=== PATIENT | male | born 1990 | race African-American/Black ===

== ENCOUNTER 2017-08-08 16:31 | Emergency (ER) | payer OTHER ==
[~2017-08-08] VITALS: Ht 180.3 cm; Wt 78.5 kg
[~2017-08-08 16:31] MED LIST: AMOX500C2 PO; HYDR-34 PO; NAPR-243 PO; SULF-222 PO; TRAZ-28 PO
[2017-08-08] MEDS ORDERED: ONDANSETRON 4 MG (ZOFRAN) ORAL DISSOLVE TAB SL ONE (18:30)
[2017-08-08] MEDS ORDERED: NS IV 1000 ML 1,000 ML IV ONE (19:08)
[2017-08-08] MEDS ORDERED: PROMETHAZINE INJ 25 MG/ML (PHENERGAN) AMP IVP ONE (19:15)
[2017-08-08 19:17] LABS: BILIRUBIN,URINE NEGATIVE (NEGATIVE); CLARITY,URINE CLEAR; COLOR,URINE YELLOW; GLUCOSE, URINE (UA) NEGATIVE (NEGATIVE); KETONES,URINE NEGATIVE (NEGATIVE); LEUKOCYTE ESTERASE ,URINE 1+ (NEGATIVE); NITRITE,URINE NEGATIVE (NEGATIVE); PH,URINE 7 (5-9); PROTEIN,URINE NEGATIVE (NEGATIVE); UROBILINOGEN,URINE NORMAL (NORMAL)
[2017-08-08 19:20] LABS: BASOPHILS % (AUTO) 0 % (0-10); EOSINOPHILS # (AUTO) 0.1 10^3/uL (0.0-0.3); EOSINOPHILS % (AUTO) 1 % (0-10); HEMATOCRIT 46 % (40-54); HEMOGLOBIN 16.3 G/DL (13.3-17.7); LYMPHOCYTES # (AUTO) 3.2 X 10^3 (1.0-4.0); LYMPHOCYTES % (AUTO) 34 % (12-44); MEAN CORPUSCULAR HEMOGLOBIN 33 PG (25-34); MEAN CORPUSCULAR HGB CONC 36 G/DL (32-36); MEAN CORPUSCULAR VOLUME 92 FL (80-99); MONOCYTES # (AUTO) 0.6 X 10^3 (0.0-1.0); MONOCYTES % (AUTO) 7 % (0-12); NEUTROPHILS # (AUTO) 5.4 X 10^3 (1.8-7.8); NEUTROPHILS % (AUTO) 58 % (42-75); PLATELET COUNT 210 10^3/uL (130-400); RED BLOOD COUNT 4.98 10^6/uL (4.35-5.85); WHITE BLOOD COUNT 9.3 10^3/uL (4.3-11.0)
[2017-08-08 19:31] LABS: BACTERIA,URINE TRACE /HPF
[2017-08-08 19:32] LABS: AMPHETAMINE SCREEN, URINE NEGATIVE (NEGATIVE); BARBITURATE SCREEN URINE NEGATIVE (NEGATIVE); BENZODIAZEPINES SCREEN URINE NEGATIVE (NEGATIVE); CANNABINOID SCREEN, URINE POSITIVE (NEGATIVE); COCAINE SCREEN URINE NEGATIVE (NEGATIVE); METHADONE STAT NEGATIVE (NEGATIVE); METHAMPHETAMINE SCREEN URINE S NEGATIVE (NEGATIVE); OPIATE SCREEN URINE NEGATIVE (NEGATIVE); OXYCODONE STAT NEGATIVE (NEGATIVE); PROPOXYPHENE STAT NEGATIVE (NEGATIVE); TRICYCLIC ANTIDEPRESSANTS SCRE NEGATIVE (NEGATIVE)
[2017-08-08 19:41] LABS: ALANINE AMINOTRANSFERASE 20 U/L (0-55); ALBUMIN 4.3 GM/DL (3.2-4.5); ALKALINE PHOSPHATASE 71 U/L (40-136); BILIRUBIN,TOTAL 0.4 MG/DL (0.1-1.0); BUN/CREATININE RATIO 12; CALCIUM 9.5 MG/DL (8.5-10.1); CARBON DIOXIDE 22 MMOL/L (21-32); CHLORIDE 107 MMOL/L (98-107); GFR ESTIMATED > 60; GLUCOSE 95 MG/DL (70-105); MAGNESIUM 2.6 MG/DL (1.8-2.4); POTASSIUM 4.2 MMOL/L (3.6-5.0); SODIUM 139 MMOL/L (135-145); TOTAL PROTEIN 7.6 GM/DL (6.4-8.2)
--- OUTSIDE RECORDS SUMMARY | 2017-08-08 20:04 | XMS REPORT | Continuity of Care Document ---
Author Author [facility] Organization [facility] Address Unknown Phone Unavailable Allergies Active Description Code Type Severity Reaction Onset Reported/Identified Relationship to Patient Clinical Status Yes No Known Drug Allergies [id number] Drug Allergy Unknown N/A 11/24/2010 Medications There is no data. Problems Date Dx Coded Attending Type Code Diagnosis Diagnosed By 11/24/2010 Ot 461.9 11/24/2010 Ot 466.0 11/24/2010 Ot 786.2 07/16/2011 Ot 845.00 07/16/2011 Ot 959.7 07/16/2011 Ot E000.8 07/16/2011 Ot E849.4 07/16/2011 Ot E927.0 03/14/2012 Ot 346.90 03/14/2012 Ot 473.9 03/14/2012 Ot 784.0 12/09/2012 LAYLA KINSEY DO Ot 465.9 12/09/2012 LAYLA KINSEY DO Ot 786.2 02/15/2014 ADAM GHOTRA CAR HOPPER Ot 686.9 02/15/2014 ADAM GHOTRA CAR HOPPER Ot 784.2 07/20/2014 KATELYN HERNANDEZ MD Ot 780.39 08/19/2014 KATELYN HERNANDEZ MD Ot 780.39 03/07/2015 KATELYN HERNANDEZ MD Ot 780.39 03/07/2015 CAMILA KRAUS, JEFF Brewer Ot F12.10 03/07/2015 CAMILA KRAUS, JEFF Brewer Ot F17.210 03/07/2015 CAMILA KRAUS, JEFF Brewer Ot S62.231A 03/07/2015 CAMILA KRAUS, JEFF Brewer Ot W22.8XXA 03/07/2015 CAMILA KRAUS, JEFF Brewer Ot Y92.009 03/07/2015 CAMILA KRAUS, JEFF Brewer Ot Y99.8 03/10/2015 KATELYN HERNANDEZ MD Ot 780.39 03/25/2015 MARY KRAUS, KATELYN K Ot 780.39 03/25/2015 JEFF JENSEN MD Ot F12.10 CANNABIS ABUSE, UNCOMPLICATED 03/25/2015 JEFF JENSEN MD Ot K59.00 CONSTIPATION, UNSPECIFIED 03/25/2015 JEFF JENSEN MD Ot R10.84 GENERALIZED ABDOMINAL PAIN 03/25/2015 JEFF JENSEN MD, Ot R19.7 DIARRHEA, UNSPECIFIED Procedures There is no data. Results Test Result Range Complete urinalysis with reflex to culture - 08/08/17 18:50 Urine color determination YELLOW NRG Urine clarity determination CLEAR NRG Urine pH measurement by test strip 7 5-9 Specific gravity of urine by test strip 1.010 1.016- 1.022 Urine protein assay by test strip, semi-quantitative NEGATIVE NEGATIVE Urine glucose detection by automated test strip NEGATIVE NEGATIVE Erythrocytes detection in urine sediment by light microscopy NEGATIVE NEGATIVE Urine ketones detection by automated test strip NEGATIVE NEGATIVE Urine nitrite detection by test strip NEGATIVE NEGATIVE Urine total bilirubin detection by test strip NEGATIVE NEGATIVE Urine urobilinogen measurement by automated test strip (mass/volume) NORMAL NORMAL Urine leukocyte esterase detection by dipstick 1+ NEGATIVE Automated urine sediment erythrocyte count by microscopy (number/high power field) NONE NRG Automated urine sediment leukocyte count by microscopy (number/high power field ) [HPF] NRG Bacteria detection in urine sediment by light microscopy TRACE NRG Crystals detection in urine sediment by light microscopy NONE NRG Casts detection in urine sediment by light microscopy NONE NRG Mucus detection in urine sediment by light microscopy NEGATIVE NRG Complete urinalysis with reflex to culture YES NRG Urine drug screening test - 08/08/17 18:50 Urine phencyclidine detection by screening method NEGATIVE NEGATIVE Urine benzodiazepines detection by screening method NEGATIVE NEGATIVE Urine cocaine detection NEGATIVE NEGATIVE Urine amphetamines detection by screening method NEGATIVE NEGATIVE Urine methamphetamine detection by screening method NEGATIVE NEGATIVE Urine cannabinoids detection by screening method POSITIVE NEGATIVE Urine opiates detection by screening method NEGATIVE NEGATIVE Urine barbiturates detection NEGATIVE NEGATIVE Screening urine tricyclic antidepressants detection NEGATIVE NEGATIVE Urine methadone detection by screening method NEGATIVE NEGATIVE Urine oxycodone detection NEGATIVE NEGATIVE Urine propoxyphene detection NEGATIVE NEGATIVE Complete blood count (CBC) with automated white blood cell (WBC) differential - 08/08/17 19:10 Blood leukocytes automated count (number/volume) 9.3 10*3/uL 4.3-11.0 Blood erythrocytes automated count (number/volume) 4.98 10*6/uL 4.35-5.85 Venous blood hemoglobin measurement (mass/volume) 16.3 g/dL 13.3-17.7 Blood hematocrit (volume fraction) 46 % 40-54 Automated erythrocyte mean corpuscular volume 92 [foz_us] 80-99 Automated erythrocyte mean corpuscular hemoglobin (mass per erythrocyte) 33 pg 25-34 Automated erythrocyte mean corpuscular hemoglobin concentration measurement ( mass/volume) 36 g/dL 32-36 Automated erythrocyte distribution width ratio 14.0 % 10.0-14.5 Automated blood platelet count (count/volume) 210 10*3/uL 130-400 Automated blood platelet mean volume measurement 10.0 [foz_us] 7.4-10.4 Automated blood neutrophils/100 leukocytes 58 % 42-75 Automated blood lymphocytes/100 leukocytes 34 % 12-44 Blood monocytes/100 leukocytes 7 % 0-12 Automated blood eosinophils/100 leukocytes 1 % 0-10 Automated blood basophils/100 leukocytes 0 % 0-10 Blood neutrophils automated count (number/volume) 5.4 10*3 1.8-7.8 Blood lymphocytes automated count (number/volume) 3.2 10*3 1.0-4.0 Blood monocytes automated count (number/volume) 0.6 10*3 0.0-1.0 Automated eosinophil count 0.1 10*3/uL 0.0-0.3 Automated blood basophil count (count/volume) 0.0 10*3/uL 0.0-0.1 Encounters ACCT No. Visit Date/Time Discharge Status Pt. Type Provider Facility Loc./Unit Complaint [id number] 03/25/2015 16:30:00 03/25/2015 23:59:59 CLS Emergency JEFF JENSEN MD [facility] ER ABD PAIN,FLU SYMPTOMS [id number] 03/07/2015 13:38:00 03/07/2015 14:48:00 DIS Emergency JEFF JENSEN MD [facility] ER [id number] 07/16/2014 08:21:00 07/16/2014 23:59:59 CLS Outpatient KATELYN HERNANDEZ MD [facility] RT [id number] 02/15/2014 20:23:00 02/15/2014 21:02:00 DIS Emergency ADAM GHOTRA APRN [facility] ER [id number] 12/09/2012 08:48:00 12/09/2012 10:26:00 DIS Emergency LAYLA KINSEY DO [facility] ER [id number] 08/08/2017 19:22:00 Document Registration [id number] 07/08/2014 11:03:00 Document Registration [id number] 03/14/2012 07:23:00 Document Registration [id number] 07/16/2011 08:03:00 Document Registration [email or web address] 07/16/2014 08:22:56 ACT Document Registration
[2017-08-08] MEDS ORDERED: ONDA4TAB8 SL (20:26)
[2017-08-08] MEDS ORDERED: CEPH-507 PO (20:26)
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
[2017-08-08 21:00] VITALS: BP 108/74
== END 2017-08-08 21:00 | disposition home or self-care (01) ==
LOC: EDUNIT# 16:31 → ER 16:33
DX: R42 Dizziness and giddiness (principal); N39.0 Urinary tract infection, site not specified; J45.909 Unspecified asthma, uncomplicated; G40.909 Epilepsy, unspecified, not intractable, without status epilepticus; F12.10 Cannabis abuse, uncomplicated; F17.290 Nicotine dependence, other tobacco product, uncomplicated
CPT/HCPCS: 36415; 80053; 80306; 80320; 81000; 83735; 85025; 87088; 87491; 87591; 96361; 96374

== ENCOUNTER 2017-08-13 14:46 | Day surgery (SDC) | payer OTHER ==
[~2017-08-13] VITALS: Ht 180.3 cm; Wt 78.5 kg
[~2017-08-13 14:46] MED LIST changes: +CEPH-507 PO; +ONDA4TAB8 SL
[2017-08-13] MEDS ORDERED: cefTRIAXone 250 MG (ROCEPHIN) VIAL IM NR (15:15)
[2017-08-13] MEDS ORDERED: AZITHROMYCIN 250 MG TAB (ZITHROMAX) PO NR (15:15)
[2017-08-13] MEDS ORDERED: LIDOCAINE 1% INJ 20 ML 20 ML VIAL INJ NR (15:15)
[2017-08-13 15:20] VITALS: BP 105/69
--- OUTSIDE RECORDS SUMMARY | 2017-08-13 15:23 | XMS REPORT | Continuity of Care Document ---
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 Ot 686.9 02/15/2014 ADAM GHOTRA PASTEURISER OPERATOR Ot 784.2 07/20/2014 KATELYN HERNANDEZ MD Ot [...] NEGATIVE NEGATIVE Urine propoxyphene detection NEGATIVE NEGATIVE Bacterial urine culture - 08/08/17 18:50 Bacterial urine culture NG NRG Chlamydia DNA amp probe, urine - 08/08/17 18:50 Chlamydia DNA amp probe, urine Not Detected Not Detected Urine Neisseria gonorrhoeae DNA assay - 08/08/17 18:50 Gonorrhea amp DNA-urine Detected Not Detected Complete blood count (CBC) with automated white [...] blood basophil count (count/volume) 0.0 10*3/uL 0.0-0.1 Comprehensive metabolic panel - 08/08/17 19:10 Serum or plasma sodium measurement (moles/volume) 139 mmol/L 135-145 Serum or plasma potassium measurement (moles/volume) 4.2 mmol/L 3.6-5.0 Serum or plasma chloride measurement (moles/volume) 107 mmol/L 98-107 Carbon dioxide 22 mmol/L 21-32 Serum or plasma anion gap determination (moles/volume) 10 mmol/L 5-14 Serum or plasma urea nitrogen measurement (mass/volume) 12 mg/dL 7-18 Serum or plasma creatinine measurement (mass/volume) 1.00 mg/dL 0.60-1.30 Serum or plasma urea nitrogen/creatinine mass ratio 12 NRG Serum or plasma creatinine measurement with calculation of estimated glomerular filtration rate > NRG Serum or plasma glucose measurement (mass/volume) 95 mg/dL 70-105 Serum or plasma calcium measurement (mass/volume) 9.5 mg/dL 8.5-10.1 Serum or plasma total bilirubin measurement (mass/volume) 0.4 mg/dL 0.1-1.0 Serum or plasma alkaline phosphatase measurement (enzymatic activity/volume) 71 U/L 40-136 Serum or plasma aspartate aminotransferase measurement (enzymatic activity/ volume) 29 U/L 5-34 Serum or plasma alanine aminotransferase measurement (enzymatic activity/volume ) 20 U/L 0-55 Serum or plasma protein measurement (mass/volume) 7.6 g/dL 6.4-8.2 Serum or plasma albumin measurement (mass/volume) 4.3 g/dL 3.2-4.5 Magnesium - 08/08/17 19:10 Magnesium 2.6 mg/dL 1.8-2.4 Serum or plasma ethanol measurement (mass/volume) - 08/08/17 19:10 Serum or plasma ethanol measurement (mass/volume) < mg/dL <10 Encounters ACCT No. Visit Date/Time Discharge Status Pt. Type Provider Facility Loc./Unit Complaint [id number] 03/25/2015 16:30:00 03/25/2015 23:59:59 CLS Emergency JEFF JENSEN MD [facility] ER ABD PAIN,FLU SYMPTOMS [id number] 03/07/2015 13:38:00 03/07/2015 14:48:00 DIS Emergency JEFF JENSEN MD [facility] ER [id number] 07/16/2014 08:21:00 07/16/2014 23:59:59 CLS Outpatient KATELYN HERNANDEZ MD [facility] RT [id number] 02/15/2014 20:23:00 02/15/2014 21:02:00 DIS Emergency ADAM GHOTRA APRN [facility] ER [id number] 12/09/2012 08:48:00 12/09/2012 10:26:00 DIS Emergency LAYLA KINSEY DO [facility] ER [id number] 08/08/2017 19:22:00 Document Registration [id number] 07/08/2014 11:03:00 Document Registration [id number] 03/14/2012 07:23:00 Document Registration [id number] 07/16/2011 08:03:00 Document Registration [email or web address] 07/16/2014 08:22:56 ACT Document Registration
== END 2017-08-13 15:55 | disposition home or self-care (01) ==
LOC: SDC 14:46
PROVIDERS: ATTEND Family Medicine
DX: A54.9 Gonococcal infection, unspecified (principal)
CPT/HCPCS: 96372

== ENCOUNTER 2018-09-26 02:02 | Emergency (ER) | payer OTHER ==
[~2018-09-26] VITALS: Ht 180.3 cm; Wt 81.6 kg
[~2018-09-26 02:02] MED LIST changes: +TRAZ-222 PO; -TRAZ-28 PO
[2018-09-26] MEDS ORDERED: TETANUS,DIPTH,PERTUSS P/F (BOOSTRIX) 0.5 ML VIAL IM ONE ×2 (02:11→02:30)
--- NOTE | 2018-09-26 02:18 | ED Upper Extremity ---
General Stated Complaint: RT HAND LAC Source: patient Exam Limitations: no limitations History of Present Illness Date Seen by Provider: Sep 26, 2018 Time Seen by Provider: 02:06 Initial Comments Here with report of laceration to the top of the right hand. This occurred much earlier yesterday. He was working on his car and scraped it on a piece of metal. He didn't think too much about it at that time and cleaned it off and put dressing over the top. He then went to work and worked his full shift and then noted that it had bled a little bit. He took the dressing off and noted that it "little bit more was concerned that it might need sutures. Does have 1.5 cm laceration to the dorsum of the hand between the base of the third and fourth finger. No signs of infection currently. Onset: yesterday Severity: mild Pain/Injury Location: right hand Method of Injury: incised Modifying Factors: Improves With Immobilization Allergies and Home Medications Allergies Coded Allergies: No Known Drug Allergies (Unverified , 11/24/10) Home Medications Cephalexin 500 Mg Capsule, 500 MG PO QID Prescribed by: SADIE WHITLEY on 08/08/172025 Ondansetron 4 Mg Tab.rapdis, 4 MG SL Q4H PRN for NAUSEA/VOMITING-1ST LINE Prescribed by: SADIE WHITLEY on 08/08/172025 Patient Home Medication List Home Medication List Reviewed: Yes Review of Systems Constitutional: no symptoms reported Respiratory: no symptoms reported Cardiovascular: no symptoms reported Skin: see HPI, lesions; No pruritus Past Kbzfvut-Dmmjgg-Vafrtz Hx Past Med/Social Hx: Reviewed Nursing Past Med/Soc Hx Patient Social History Alcohol Use: Occasionally Uses Alcohol Beverage of Choice: Beer, Rum, Whiskey Drug of Choice: MARIJUANA Type Used: Cigars 2nd Hand Smoke Exposure: Yes Recent Foreign Travel: No Contact w/Someone Who Travel: No Recent Hopitalizations: No Immunizations Up To Date Date of Influenza Vaccine: Nov 18, 2012 Seasonal Allergies Seasonal Allergies: No Past Medical History Surgeries: Yes (RIGHT wrist, ) Orthopedic Respiratory: Yes Asthma Cardiac: No Neurological: Yes Seizure Disorder Genitourinary: No (ENLARGED KIDNEY) Gastrointestinal: No Musculoskeletal: No Endocrine: No HEENT: No Cancer: No Psychosocial: No Integumentary: No Blood Disorders: No Family Medical History Reviewed Nursing Family Hx No Pertinent Family Hx Physical Exam Vital Signs Capillary Refill : Height, Weight, BMI Height: 5'11.00" Weight: 173lbs. 0.0oz. 78.374523yp; BMI Method:Stated General Appearance: WD/WN, no apparent distress Cardiovascular: regular rate, rhythm, no murmur Respiratory: lungs clear, normal breath sounds Neurologic/Psychiatric: alert, oriented x 3 Skin: warm/dry, other (1.5 cm laceration oriented along the bone line to the hand doing the third and fourth finger at the base. Bleeding controlled. No signs and symptoms of infection.) Progress/Results/Core Measures Results/Orders My Orders Orders - JEFF JENSEN MD Dipht,Pertuss(Acell),Tet Adult (Boostrix (09/26/18 02:11) Tdap (Boostrix) Im (09/26/18 02:30) Progress Progress Note : Progress Note Seen and evaluated. Wound is greater than 12 hours old so we will not suture. We will use Steri-Strip to improve approximation and cover with dressing. Wound cleaned by nursing prior to placing Steri-Strips. Discharged home with return precautions. Patient verbalize understanding instructions and agreement with plan. Tetanus updated. Departure Impression Primary Impression: Laceration of hand Qualified Codes: S61.411A - Laceration without foreign body of right hand, initial encounter Disposition: 01 HOME, SELF-CARE Condition: Improved Departure-Patient Inst. Decision time for Depature: 02:20 Referrals: JOSE FRANCISCO FISHMAN DO (PCP/Family) Primary Care Physician Patient Instructions: Wound Care (DC) Add. Discharge Instructions: Keep Steri-Strips in place until it falls off on its own which showed acute or over the next 5-7 days. You may cover with dry Band-Aid. He may put a very small ribbon of antibiotic ointment to the wound but do not spread out over the Steri- Strips as this may cause this to prematurely fall off. You may gently wash area but did not soak for any prolonged period of time. Return for worse pain, fever, redness of the hand, foul-smelling drainage or other concerns as needed. JEFF JENSEN MD Sep 26, 2018 02:18
[2018-09-26 02:33] VITALS: BP 115/86
== END 2018-09-26 02:33 | disposition home or self-care (01) ==
LOC: EDUNIT# 02:02 → ER 02:06
DX: S61.411A Laceration without foreign body of right hand, initial encounter (principal); J45.909 Unspecified asthma, uncomplicated; G40.909 Epilepsy, unspecified, not intractable, without status epilepticus; Z77.22 Contact with and (suspected) exposure to environmental tobacco smoke (acute) (chronic); Z23 Encounter for immunization; W26.8XXA Contact with other sharp object(s), not elsewhere classified, initial encounter
CPT/HCPCS: 90471; 90715

== ENCOUNTER 2019-08-20 03:03 | Emergency (ER) | payer OTHER ==
[~2019-08-20] VITALS: Ht 180 cm; Wt 82.0 kg
[~2019-08-20 03:03] MED LIST changes: -TRAZ-222 PO; +TRZ50T PO
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
[2019-08-20] MEDS ORDERED: LIDOCAINE 1% INJ 20 ML 20 ML VIAL INJ ONE (03:30)
[2019-08-20] MEDS ORDERED: CEPHALEXIN 250 MG (KEFLEX) CAP PO ONE (03:30)
--- NOTE | 2019-08-20 03:31 | ED Upper Extremity ---
General Stated Complaint: LEFT RING FINGER BLEEDING Source: patient Exam Limitations: no limitations History of Present Illness Date Seen by Provider: Aug 20, 2019 Time Seen by Provider: 03:15 Initial Comments Patient presents to ER by private conveyance from home with chief complaint that about 9:30 last night he is working on his car and it slipped off the kris and smashed his left hand fourth digit. He had a large open laceration on the palmar side that he dressed with duct tape and gauze. He says it kept bleeding so he drank a couple beers to try and stymie the pain but he could not get the bleeding to stop so he decided come the ER. No other significant medical history. Does not take any medicines. He had a tetanus vaccination the last year. Allergies and Home Medications Allergies Coded Allergies: No Known Drug Allergies (Unverified , 11/24/10) Home Medications Cephalexin 500 Mg Capsule, 500 MG PO QID Prescribed by: SADIE WHITLEY on 08/08/172025 Ondansetron 4 Mg Tab.rapdis, 4 MG SL Q4H PRN for NAUSEA/VOMITING-1ST LINE Prescribed by: SADIE WHITLEY on 08/08/172025 Patient Home Medication List Home Medication List Reviewed: Yes Review of Systems Constitutional: No chills, No diaphoresis, No fever, No malaise EENTM: No ear discharge, No ear pain Respiratory: No cough, No short of breath Cardiovascular: No chest pain, No edema Gastrointestinal: No abdominal pain, No constipation, No diarrhea, No nausea Genitourinary: No discharge, No dysuria Musculoskeletal: No back pain, No joint pain All Other Systems Reviewed Negative Unless Noted: Yes Past Xldqrff-Typjcb-Asckgf Hx Patient Social History Alcohol Use: Regular Use Alcohol Beverage of Choice: Beer, Rum, Whiskey Recreational Drug Use: Yes Drug of Choice: MARIJUANA Smoking Status: Current Everyday Smoker Type Used: Cigars 2nd Hand Smoke Exposure: Yes Recent Foreign Travel: No Contact w/Someone Who Travel: No Recent Hopitalizations: No Immunizations Up To Date Date of Influenza Vaccine: Nov 18, 2012 Seasonal Allergies Seasonal Allergies: No Past Medical History Surgeries: Yes (RIGHT wrist, ) Orthopedic Respiratory: Yes Asthma Cardiac: No Neurological: Yes Seizure Disorder Genitourinary: No (ENLARGED KIDNEY) Gastrointestinal: No Musculoskeletal: No Endocrine: No HEENT: No Cancer: No Psychosocial: No Integumentary: No Blood Disorders: No Family Medical History No Pertinent Family Hx Physical Exam Vital Signs Vital Signs - First Documented 08/20/19 03:27 Temp 36.7 Pulse 79 Resp 16 B/P (MAP) 109/55 (73) Pulse Ox 99 O2 Delivery Room Air Capillary Refill : Height, Weight, BMI Height: 5'11.00" Weight: 180lbs. 0.0oz. 81.826790fz; BMI Method:Stated General Appearance: WD/WN, no apparent distress HEENT: PERRL/EOMI, pharynx normal Neck: full range of motion, supple, normal inspection Cardiovascular: normal peripheral pulses, regular rate, rhythm Respiratory: no respiratory distress, no accessory muscle use Elbow/Forearm: normal inspection, non-tender, no evidence of injury, normal ROM, Left Wrist: Yes normal inspection, Yes non-tender, Yes no evidence of injury, Yes normal ROM Hand: bone tenderness (fourth digit left hand), laceration (3 cm linear laceration palmar side fourth digit left hand), limited ROM (fourth digit left hand), stiffness, swelling Neurologic/Tendon: normal sensation, normal motor functions Neurologic/Psychiatric: alert, normal mood/affect, oriented x 3 Skin: other (ragged laceration and bruise, mildly swollen fourth digit left hand) Procedures/Interventions Wound Location: Upper Extremities Other Wound Location Left hand fourth digit palmar side Wound Length (cm): 3 Wound's Depth, Shape: linear (ragged edges), sub Q Wound Explored: no foreign body removed Irrigated w/ Saline (ccs): 50 Betadine Prep?: Yes (chlorhexidine) Anesthesia: 1% Lidocaine Volume Anesthetic (ccs): 3 Suture: Prolene Suture Size: 5-0 Number of Sutures: 4 Layer Closure?: 1 Number Deep Layer Sutures: 0 Sterile Dressing Applied?: Yes Progress Using the typical digital block we're able to gain good analgesia with lidocaine. Then thoroughly clean the wound with chlorhexidine and sterile saline. The wound was then flushed out multiple times with sterile saline. Wound edges were reapproximated and closed with 4 simple interrupted sutures using 5-0 Prolene. Wound was hemostatic and patient tolerated the procedure well. Clean dry gauze, sterile dressing was placed by nursing staff after triple antibiotic ointment was placed over the wound. The finger was then augusta taped to his middle finger. Progress/Results/Core Measures Results/Orders My Orders Orders - KHARI MATTHEWS Cephalexin Capsule (Keflex Capsule) (08/20/19 03:30) Lidocaine 1% Inj 20 Ml (Xylocaine 1% Inj (08/20/19 03:30) Hand, Left, 3 Views (08/20/19 03:24) Rx-Hydrocodone/Apap 5-325 Mg (Rx-Vicodin (08/20/19 04:30) Medications Given in ED Current Medications Medications Dose Ordered Sig/Sha Route Start Time Stop Time Status Last Admin Dose Admin Cephalexin HCl 500 mg ONCE ONCE PO 08/20/19 03:30 08/20/19 03:31 DC 08/20/19 03:43 500 MG Lidocaine HCl 20 ml ONCE ONCE INJ 08/20/19 03:30 08/20/19 03:31 DC 08/20/19 03:43 20 ML Vital Signs/I&O 08/20/19 08/20/19 03:27 04:13 Temp 36.7 Pulse 79 71 Resp 16 16 B/P (MAP) 109/55 (73) 105/61 Pulse Ox 99 99 O2 Delivery Room Air Room Air Progress Progress Note : Time: 03:28 Progress Note X-ray of the left hand and we are allowing him to soak it and chlorhexidine and sterile saline. We'll then flush the wound thoroughly and do a digital block. Plan to use a Finger tourniquet if necessary and then closed the wound. He is up-to-date on tetanus vaccination. Keflex to prevent infection. Diagnostic Imaging Diagonstic Imaging: Xray Plain Films/CT/US/NM/MRI: hand (left) Comments Vertical tuft fracture with minimal displacement on the fourth digit left hand Reviewed: Reviewed by Me Departure Impression Primary Impression: Crushing injury of finger of left hand Additional Impressions: Fracture of finger, left, closed Qualified Codes: S62.665A - Nondisplaced fracture of distal phalanx of left ring finger, initial encounter for closed fracture Laceration of finger of left hand Qualified Codes: S61.215A - Laceration without foreign body of left ring fi nger without damage to nail, initial encounter Disposition: 01 HOME, SELF-CARE Condition: Stable Departure-Patient Inst. Decision time for Depature: 04:25 Referrals: JOSE FRANCISCO FISHMAN DO (PCP/Family) Primary Care Physician XAVIER HUMPHREY DO Patient Instructions: Crush Injury (DC), Finger Fracture, Laceration Repair With Stitches (DC) Add. Discharge Instructions: Keep the wound clean with regular soap and water. Elevated above the level of your heart to reduce swelling and pain. Tylenol 650 mg every 8 hours as necessary for pain. Ibuprofen 800 mg every 8 hours as necessary for pain. Hydrocodone one tablet every 6 hours as necessary for pain that does not respond to the other medications. Hydrocodone will cause drowsiness and constipation. You can use MiraLAX to control the constipation 1-3 times a day as necessary. Keep the finger taped to the middle finger to help splint it and reduce pain. Return to the ER and have the sutures out in approximately 10 days. Keflex one capsule 3 times a day to prevent infection in the fingers. Fractures will heal on their own in about 6 weeks. Expect to have significant discomfort for the first 2-3 weeks. Rest your finger and do not use it for work for the first 2 weeks. Follow-up in one week with Dr. HUMPHREY, hand surgeon for reexamination. Alternatively you can follow-up with your primary care doctor. Return to the ER if you're having intractable pain, increasing swelling in redness of the hand or arm or other worrisome symptoms such as discharge from t he wound, fever etc. Scripts Hydrocodone/Acetaminophen (Hydrocodone-Acetamin 5-325 mg) 1 Each Tablet 1 EACH PO Q6H PRN for PAIN-BREAKTHROUGH, #10 TAB 0 Refills Prov: KHARI AMTTHEWS 08/20/19 Cephalexin (Keflex) 500 Mg Capsule 500 MG PO TID for 7 Days, #21 CAP 0 Refills Prov: KHARI MATTHEWS 08/20/19 Work/School Note: Work Release Form Date Seen in the Emergency Department: Aug 20, 2019 Return to Work: Aug 22, 2019 Restrictions: Need Release from Doctor Restrictions: Do not use left hand until 08/24/19. Light duty left hand until 09/04/19. Copy Copies To 1: XAVIER HUMPHREY TITUS J Aug 20, 2019 03:31
[2019-08-20 04:13] VITALS: BP 105/61
[2019-08-20] MEDS ORDERED: HYDR-83 PO (04:28)
[2019-08-20] MEDS ORDERED: CEPH-507 PO (04:28)
[2019-08-20] MEDS ORDERED: RX-HYDROCODONE/APAP 5/325 MG #4 TAB PK PO PRN (04:30)
--- NOTE | 2019-08-20 06:37 | Diagnostic Imaging Report ---
INDICATION: Crush injury to 4th finger. FINDINGS: There is a minimally displaced tuft fracture of the left 4th finger. There is no other fracture or dislocation. Soft tissues are unremarkable. IMPRESSION: Minimally displaced tuft fracture of the left 4th finger. Dictated by: Dictated on workstation # [id number]
== END 2019-08-20 04:36 | disposition home or self-care (01) ==
LOC: EDUNIT# 03:03 → ER 03:06
DX: S62.635A Displaced fracture of distal phalanx of left ring finger, initial encounter for closed fracture (principal); S67.195A Crushing injury of left ring finger, initial encounter; S61.215A Laceration without foreign body of left ring finger without damage to nail, initial encounter; F17.290 Nicotine dependence, other tobacco product, uncomplicated; W23.1XXA Caught, crushed, jammed, or pinched between stationary objects, initial encounter
CPT/HCPCS: 64450; 73130

== ENCOUNTER 2019-08-29 02:39 | Emergency (ER) | payer BC, OTHER ==
[~2019-08-29] VITALS: Ht 180.3 cm; Wt 81.2 kg
[~2019-08-29 02:39] MED LIST changes: +HYDR-83 PO
[2019-08-29] MEDS ORDERED: LIDOCAINE PF 2% 5 ML (XYLOCAINE) VIAL ONE (03:29)
[2019-08-29] MEDS ORDERED: CEPH500T PO (03:52)
--- NOTE | 2019-08-29 03:53 | ED Upper Extremity ---
General Chief Complaint: Laceration Stated Complaint: RT THUMB LAC Nursing Triage Note: PT AMBULATE TO TRIAGE WITH C/O LAC TO RIGHT THUMB. PT STATES HE WAS COOKING AND CUT THUMB. Nursing Sepsis Screen: No Definite Risk Source: patient History of Present Illness Date Seen by Provider: Aug 29, 2019 Time Seen by Provider: 03:20 Initial Comments PT ARRIVES VIA POV FROM HOME STATES HE WAS CUTTING UP TOMATOES AND POTATOES WITH A KITCHEN KNIFE, JUST PRIOR TO ARRIVAL AND CUT HIS RIGHT THUMB PT STATES HE IS RIGHT HANDED, BUT WAS USING HIS LEFT HAND TO CUT WITH ADDITIONALLY, PT RECENTLY INJURED LEFT FINGERS 3 AND 4 AND HAS THEM HEAVILY BANDAGED ( DRESSINGS DIRTY AND AWRY) --WAS SEEN HERE 08/20/19 NO NUMBNESS OR TINGLING HAS FULL ROM OF THUMB NO PRIOR INJURY TO THIS THUMB Allergies and Home Medications Allergies Coded Allergies: No Known Drug Allergies (Unverified , 11/24/10) Home Medications Cephalexin 500 Mg Capsule, 500 MG PO QID Prescribed by: SADIE WHITLEY on 08/08/172025 Cephalexin 500 Mg Capsule, 500 MG PO TID Prescribed by: KHARI MATTHEWS on 08/20/19427 Cephalexin 500 Mg Tablet, 500 MG PO TID Prescribed by: LAYLA KINSEY on 08/29/19 0352 Hydrocodone/Acetaminophen 1 Each Tablet, 1 EACH PO Q6H PRN for PAIN-BREAKTHROUGH Prescribed by: KHARI MATTHEWS on 08/20/19427 Ondansetron 4 Mg Tab.rapdis, 4 MG SL Q4H PRN for NAUSEA/VOMITING-1ST LINE Prescribed by: SADIE WHITLEY on 08/08/172025 Patient Home Medication List Home Medication List Reviewed: Yes Review of Systems Constitutional: no symptoms reported Musculoskeletal: see HPI Skin: see HPI Psychiatric/Neurological: No Symptoms Reported Past Jkrhtnv-Oycrdx-Qlwasb Hx Past Med/Social Hx: Reviewed and Corrections made Patient Social History Alcohol Use: Regular Use Number of Drinks Today: GG Alcohol Beverage of Choice: Beer, Rum, Whiskey Recreational Drug Use: Yes (THC) Drug of Choice: MARIJUANA Smoking Status: Current Everyday Smoker (1 1/2 PPD) Type Used: Cigars 2nd Hand Smoke Exposure: Yes Recent Foreign Travel: No Contact w/Someone Who Travel: No Recent Infectious Disease Expo: No Recent Hopitalizations: No Physical Abuse: No Sexual Abuse: No Mistreated: No Fear: No Immunizations Up To Date Tetanus Booster (TDap): Less than 5yrs Date of Influenza Vaccine: Nov 18, 2012 Seasonal Allergies Seasonal Allergies: No Past Medical History Surgeries: Yes (RIGHT wrist, ) Orthopedic Respiratory: Yes Asthma Cardiac: No Neurological: Yes Seizure Disorder Genitourinary: No (ENLARGED KIDNEY) Gastrointestinal: No Musculoskeletal: No Endocrine: No HEENT: No Cancer: No Psychosocial: No Integumentary: No Blood Disorders: No Physical Exam Vital Signs Vital Signs - First Documented 08/29/19 08/29/19 03:04 03:58 Temp 36.8 Pulse 80 Resp 18 B/P (MAP) 126/87 (100) Pulse Ox 99 O2 Delivery Room Air Capillary Refill : Less Than 3 Seconds Height, Weight, BMI Height: 5'11.00" Weight: 180lbs. 0.0oz. 81.387364ou; 24.00 BMI Method:Stated General Appearance: WD/WN, no apparent distress Hand: Right (DORSAL ASPECT OF RIGHT THUMB WIHT 2 CM LACERATION, JUST PROXIMAL TO IP JOINT. MOTOR/SENSORY/VASCULAR INTACT. BLEEDING CONTROLLED AT THIS TIME. ) Neurologic/Tendon: normal sensation, normal motor functions, normal tendon functions Neurologic/Psychiatric: transformation lead II-XII nml as tested, no motor/sensory deficits, alert, normal mood/affect, oriented x 3 Skin: normal color (PT IS BLACK), warm/dry, other (LACERATION ABOVE) Procedures/Interventions Other Wound Location RIGHT THUMB Wound's Depth, Shape: linear, sub Q Wound Explored: clean Irrigated w/ Saline (ccs): 100 Betadine Prep?: No (BETASEPT) Anesthesia: 1% Lidocaine (2% LIDOCAINE PLAIN) Suture: Ethlion Suture Size: 4-0, 5-0 Number of Sutures: 4 Layer Closure?: 1 Sterile Dressing Applied?: Yes Progress AND SPLINT PLACED ON THUMB Splinting and Joint Reduction : Splint Application: Finger Progress/Results/Core Measures Results/Orders My Orders Vital Signs/I&O Blood Pressure Mean: 100 Departure Impression Primary Impression: Laceration of right thumb Disposition: 01 HOME, SELF-CARE Condition: Stable Departure-Patient Inst. Referrals: JOSE FRANCISCO FISHMAN DO (PCP/Family) Primary Care Physician Patient Instructions: Laceration Repair With Stitches (DC) Add. Discharge Instructions: LEAVE DRESSING IN PLACE FOR 24 HOURS, THEN CLEAN TWICE A DAY WITH ANTIBACTERIAL SOAP AND WATER ON A Q-TIP. OTHERWISE KEEP CLEAN AND DRY. WEAR SPLINT AT ALL TIMES TYLENOL AND MOTRIN NEEDED FOR PAIN SUTURES OUT IN 10-12 DAYS--RETURN TO ER FOR REMOVAL. All discharge instructions reviewed with patient and/or family. Voiced understanding. Scripts Cephalexin (Cephalexin) 500 Mg Tablet 500 MG PO TID, #21 TAB 0 Refills Prov: LAYLA KINSEY DO 08/29/19 LAYLA KINSEY DO Aug 29, 2019 03:52
[2019-08-29 03:58] VITALS: BP 138/84
== END 2019-08-29 03:57 | disposition home or self-care (01) ==
LOC: EDUNIT# 02:39 → ER 02:42
DX: S61.011A Laceration without foreign body of right thumb without damage to nail, initial encounter (principal); F17.290 Nicotine dependence, other tobacco product, uncomplicated; W26.0XXA Contact with knife, initial encounter

== ENCOUNTER 2020-12-24 16:02 | Emergency (ER) | payer BC ==
[~2020-12-24] VITALS: Ht 180 cm; Wt 77.0 kg
[~2020-12-24 16:02] MED LIST changes: +ACHD5005 PO; +CEPH500T PO; -HYDR-83 PO
[2020-12-24] MEDS ORDERED: FLUC100T6 (16:31)
[2020-12-24] MEDS ORDERED: AMOX500C2 (16:31)
[2020-12-24] MEDS ORDERED: KETOROLAC 30 MG/ML VIAL IVP ONE (17:00)
[2020-12-24] MEDS ORDERED: NYSTATIN ORAL SUSP 5 ML UDC PO ONE (17:00)
--- NOTE | 2020-12-24 17:02 | ED EENT ---
History of Present Illness General Chief Complaint: Oral/Throat Problems Stated Complaint: CHILLS/HEADACHE/SORE THROAT Nursing Triage Note: ARRIVE VIA AMB TO ROOM 10 WITH COMPLAINTS OF A SEVERE SORE THROAT AND FEVER. STATES IT STARTED LAST WEEK AND HE WENT TO [facility] AND WAS PRESCRIBED AMOXICILLIN AND FLUCCONAZOLE. STATES IT DOES NOT HELP. TOOK A HYDROCODONE X1 [employer] WHICH HAS NOT HELPED. Source: patient Exam Limitations: no limitations History of Present Illness Date Seen by Provider: Dec 24, 2020 Time Seen by Provider: 17:02 Allergies and Home Medications Allergies Coded Allergies: No Known Drug Allergies (Unverified , 11/24/10) Patient Home Medication List Amoxicillin (Amoxicillin) 500 Mg Capsule, (Reported) Entered as Reported by: ZECHARIAH JAY on 12/24/201630 Last Action: New Order Fluconazole (Fluconazole) 100 Mg Tablet, (Reported) Entered as Reported by: ZECHARIAH JAY on 12/24/201630 Last Action: New Order Hydrocodone/Acetaminophen (Hydrocodone-Acetamin 5-325 mg) 1 Each Tablet, 1 EACH PO Q6H PRN for PAIN-BREAKTHROUGH Prescribed by: KHARI MATTHEWS on 08/20/19427 Discontinued Medications Cephalexin (Keflex) 500 Mg Capsule, 500 MG PO QID Discontinued Reason: No Longer Taking Prescribed by: SADIE WHITLEY on 08/08/172025 Last Action: Discontinued Cephalexin (Keflex) 500 Mg Capsule, 500 MG PO TID Discontinued Reason: No Longer Taking Prescribed by: KHARI MATTHEWS on 08/20/19427 Last Action: Discontinued Cephalexin (Cephalexin) 500 Mg Tablet, 500 MG PO TID Discontinued Reason: No Longer Taking Prescribed by: LAYLA KINSEY on 08/29/19351 Last Action: Discontinued Ondansetron (Zofran Odt) 4 Mg Tab.rapdis, 4 MG SL Q4H PRN for NAUSEA/VOMITING- 1ST LINE Discontinued Reason: No Longer Taking Prescribed by: SADIE WHITLEY on 08/08/172025 Last Action: Discontinued Past Oojhctu-Vucpqe-Srrxcs Hx Patient Social History Smoking Status: Current Everyday Smoker Substance use?: Yes Substance type: Marijuana Alcohol Use?: Yes Alcohol Frequency: Once in a while Immunizations Up To Date Tetanus Booster (TDap): Less than 5yrs Second COVID19 Vaccination Boris: UNKNOWN COVID19 Vaccine Contract Loader: UNKNOWN Seasonal Allergies Seasonal Allergies: No Past Medical History Surgeries: Yes (RIGHT wrist, ) Orthopedic Respiratory: Yes Asthma Cardiac: No Neurological: Yes Seizure Disorder Genitourinary: No (ENLARGED KIDNEY) Gastrointestinal: No Musculoskeletal: No Endocrine: No HEENT: No Cancer: No Psychosocial: No Integumentary: No Blood Disorders: No Physical Exam Vital Signs Vital Signs - First Documented 12/24/20 16:05 Temp 37.9 Pulse 102 Resp 16 B/P (MAP) 118/88 (98) Pulse Ox 99 O2 Delivery Room Air Height, Weight, BMI Height: 5'11.00" Weight: 180lbs. 0.0oz. 81.085546mc; 23.00 BMI Method:Stated Procedures/Interventions Suture Size: 4-0, 5-0 Progress/Results/Core Measures Results/Orders Lab Results Laboratory Tests Test 12/24/20 16:15 12/24/20 16:45 Range/Units Group A Streptococcus Screen NEGATIVE NEGATIVE White Blood Count 8.5 4.3-11.0 10^3/uL Red Blood Count 4.98 4.30-5.52 10^6/uL Hemoglobin 15.5 13.3-17.7 g/dL Hematocrit 47 40-54 % Mean Corpuscular Volume 94 80-99 fL Mean Corpuscular Hemoglobin 31 25-34 pg Mean Corpuscular Hemoglobin Concent 33 32-36 g/dL Red Cell Distribution Width 13.2 10.0-14.5 % Platelet Count 192 130-400 10^3/uL Mean Platelet Volume 10.2 9.0-12.2 fL Immature Granulocyte % (Auto) 1 % Neutrophils (%) (Auto) 59 42-75 % Lymphocytes (%) (Auto) 28 12-44 % Monocytes (%) (Auto) 12 0-12 % Eosinophils (%) (Auto) 1 0-10 % Basophils (%) (Auto) 1 0-10 % Neutrophils # (Auto) 5.0 1.8-7.8 10^3/uL Lymphocytes # (Auto) 2.4 1.0-4.0 10^3/uL Monocytes # (Auto) 1.0 0.0-1.0 10^3/uL Eosinophils # (Auto) 0.1 0.0-0.3 10^3/uL Basophils # (Auto) 0.0 0.0-0.1 10^3/uL Immature Granulocyte # (Auto) 0.0 0.0-0.1 10^3/uL Neutrophils % (Manual) 67 % Lymphocytes % (Manual) 17 % Monocytes % (Manual) 16 % Blood Morphology Comment NORMAL Sodium Level 136 135-145 MMOL/L Potassium Level 4.2 3.6-5.0 MMOL/L Chloride Level 101 98-107 MMOL/L Carbon Dioxide Level 24 21-32 MMOL/L Anion Gap 11 5-14 MMOL/L Blood Urea Nitrogen 12 7-18 MG/DL Creatinine 1.13 0.60-1.30 MG/DL Estimat Glomerular Filtration Rate 91 BUN/Creatinine Ratio 11 Glucose Level 97 70-105 MG/DL Calcium Level 9.2 8.5-10.1 MG/DL Corrected Calcium 9.1 8.5-10.1 MG/DL Total Bilirubin 0.3 0.1-1.0 MG/DL Aspartate Amino Transf (AST/SGOT) 28 5-34 U/L Alanine Aminotransferase (ALT/SGPT) 16 0-55 U/L Alkaline Phosphatase 60 40-136 U/L C-Reactive Protein High Sensitivity 12.21 H 0.00-0.50 MG/DL Total Protein 7.6 6.4-8.2 GM/DL Albumin 4.1 3.2-4.5 GM/DL SARS-CoV-2 RNA (RT-PCR) Not Detected Not Detecte My Orders Orders - MIREYA BAIRD TOP STITCHER Covid 19 Inhouse Test (12/24/20 16:17) Rapid Strep A Screen (12/24/20 16:18) Ed Iv/Invasive Line Start (12/24/20 17:00) Cbc And Manual Diff (12/24/20 17:00) Comprehensive Metabolic Panel (12/24/20 17:00) Hs C Reactive Protein (12/24/20 17:00) Ketorolac Injection (Toradol Injection) (12/24/20 17:00) Nystatin Oral Suspension (Mycostatin O (12/24/20 17:00) Ns Iv 1000 Ml (Sodium Chloride 0.9%) (12/24/20 17:06) Ns Iv 1000 Ml (Sodium Chloride 0.9%) (12/24/20 17:16) Ua Culture If Indicated (12/24/20 17:51) Genital Culture (12/24/20 17:51) Chlamydia Trachomatis Urine (12/24/20 17:51) Neis Ankit Dna Urine Test (12/24/20 17:51) Medications Given in ED Current Medications Medications Dose Ordered Sig/Sha Route Start Time Stop Time Status Last Admin Dose Admin Ketorolac Tromethamine 30 mg ONCE ONCE IVP 12/24/20 17:00 12/24/20 17:03 DC 12/24/20 17:09 30 MG Nystatin 5 ml ONCE ONCE PO 12/24/20 17:00 12/24/20 17:03 DC 12/24/20 17:08 5 ML Vital Signs/I&O 12/24/20 16:05 Temp 37.9 Pulse 102 Resp 16 B/P (MAP) 118/88 (98) Pulse Ox 99 O2 Delivery Room Air Blood Pressure Mean: 98 Departure Impression Primary Impression: Thrush of mouth and esophagus Disposition: 01 HOME, SELF-CARE Condition: Improved Departure-Patient Inst. Decision time for Depature: 17:55 Referrals: JOSE FRANCISCO FISHMAN DO (PCP/Family) Primary Care Physician Patient Instructions: Thrush Add. Discharge Instructions: Plan: 1. Swish and swallow Nystatin every 6 hours as directed. Do not eat or drink anything immediately after. 2. Finish the rest of your antibiotics as directed. 3. Follow up with Dr. Fishman for persistent symptoms. 4. The ER will notify you of your cultures via phone if additional antibiotics are required. 5. Take Toradol as directed and do not take with other anti-inflammatory medications (aleve, ibuprofen, naproxen). 6. Return to ER for any new, concerning, or worsening symptoms. All discharge instructions reviewed with patient and/or family. Voiced understanding. Scripts Ketorolac Tromethamine (Ketorolac Tromethamine) 10 Mg Tablet 10 MG PO Q6H PRN for PAIN-SEE DOSE INSTRUCTIONS, #10 TAB 0 Refills Prov: MIREYA BAIRD TOP STITCHER 12/24/20 Nystatin (Nystatin) 100,000 Unit/1 Ml Oral.susp 450620 UNIT PO Q6H for 10 Days, #250 ML 0 Refills Swish and swallow Prov: MIREYA BAIRD TOP STITCHER 12/24/20 MIREYA BAIRD TOP STITCHER Dec 24, 2020 17:02
[2020-12-24] MEDS ORDERED: NS IV 1000 ML 1,000 ML ONE (17:06)
[2020-12-24 17:10] LABS: ALBUMIN 4.1 GM/DL (3.2-4.5); BASOPHILS % (AUTO) 1 % (0-10); EOSINOPHILS # (AUTO) 0.1 10^3/uL (0.0-0.3); EOSINOPHILS % (AUTO) 1 % (0-10); HEMATOCRIT 47 % (40-54); HEMOGLOBIN 15.5 g/dL (13.3-17.7); LYMPHOCYTES # (AUTO) 2.4 10^3/uL (1.0-4.0); LYMPHOCYTES % (AUTO) 28 % (12-44); MEAN CORPUSCULAR HEMOGLOBIN 31 pg (25-34); MEAN CORPUSCULAR HGB CONC 33 g/dL (32-36); MEAN CORPUSCULAR VOLUME 94 fL (80-99); MEAN PLATELET VOLUME 10.2 fL (9.0-12.2); MONOCYTES % (AUTO) 12 % (0-12); NEUTROPHILS % (AUTO) 59 % (42-75); PLATELET COUNT 192 10^3/uL (130-400); POTASSIUM 4.2 MMOL/L (3.6-5.0); WHITE BLOOD COUNT 8.5 10^3/uL (4.3-11.0)
[2020-12-24 17:12] LABS: CALCIUM 9.2 MG/DL (8.5-10.1)
[2020-12-24 17:13] LABS: TOTAL PROTEIN 7.6 GM/DL (6.4-8.2)
[2020-12-24 17:15] LABS: BILIRUBIN,TOTAL 0.3 MG/DL (0.1-1.0)
[2020-12-24 17:16] LABS: CREATININE SERUM 1.13 MG/DL (0.60-1.30)
[2020-12-24] MEDS ORDERED: NS IV 1000 ML 1,000 ML IV STA (17:16)
[2020-12-24 17:25] LABS: LYMPHOCYTES % (MANUAL) 17 %; MONOCYTES % (MANUAL) 16 %; NEUTROPHILS % (MANUAL) 67 %; RBC MORPH NORMAL
[2020-12-24] MEDS ORDERED: NYST1000 PO (18:00)
[2020-12-24] MEDS ORDERED: KETO10TA PO (18:00)
[2020-12-24 18:01] LABS: BILIRUBIN,URINE NEGATIVE (NEGATIVE); CLARITY,URINE CLEAR; COLOR,URINE YELLOW; GLUCOSE, URINE (UA) NEGATIVE (NEGATIVE); KETONES,URINE NEGATIVE (NEGATIVE); LEUKOCYTE ESTERASE ,URINE NEGATIVE (NEGATIVE); NITRITE,URINE NEGATIVE (NEGATIVE); PH,URINE 6.5 (5-9); PROTEIN,URINE 1+ (NEGATIVE)
[2020-12-24 18:11] LABS: BACTERIA,URINE FEW /HPF; SQUAMOUS EPITHELIAL CELL,UR 0-2 /HPF; WBC,URINE 0-2 /HPF
[2020-12-24 18:20] VITALS: BP 126/99
== END 2020-12-24 18:20 | disposition home or self-care (01) ==
LOC: EDUNIT# 16:02 → ER 16:05
DX: B37.0 Candidal stomatitis (principal); B37.81 Candidal esophagitis; J45.909 Unspecified asthma, uncomplicated; F17.200 Nicotine dependence, unspecified, uncomplicated; Z20.822 Contact with and (suspected) exposure to COVID-19
CPT/HCPCS: 36415; 80053; 81000; 85007; 85027; 86141; 87430; 87491; 87591; 87636

== ENCOUNTER 2021-09-07 12:41 | Emergency (ER) | payer BC ==
[~2021-09-07] VITALS: Ht 180.3 cm; Wt 81.6 kg
[~2021-09-07 12:41] MED LIST changes: +AMOX500C2; +FLUC100T10; +KETO10TA PO; +NYST1000 PO
--- NOTE | 2021-09-07 13:40 | ED General ---
General Chief Complaint: Chest Wall Stated Complaint: R RIB PAIN Nursing Triage Note: pt ambulatory to room. pt states he was hit in the right side a week and a half ago playing basketball and has had r side rib pain since and it has worsened everyday per pt report Source of Information: Patient Exam Limitations: No Limitations History of Present Illness Date Seen by Provider: Sep 07, 2021 Time Seen by Provider: 13:38 Initial Comments This is a well-appearing 31-year-old male who presented to the ER via POV with complaints of right rib pain. States that he was elbowed about 1-1/2 to 2 weeks ago and has had constant pain since. Over the past several days his pain has significantly worsened, he was unable to get any rest last night due to the pain. Has not taken any Tylenol or Ibuprofen OTC pain relievers. Pain is worse with deep breathing. No alleviating factors. No fever, chills, cough, shortness of breath, chest pain, nausea, vomiting, abdominal pain. Allergies and Home Medications Allergies Coded Allergies: No Known Drug Allergies (Unverified , 11/24/10) Patient Home Medication List Home Medication List Reviewed: Yes Amoxicillin (Amoxicillin) 500 Mg Capsule, (Reported) Entered as Reported by: ZECHARIAH JAY on 12/24/20 1631 Cyclobenzaprine HCl (Cyclobenzaprine HCl) 10 Mg Tablet, 10 MG PO Q8H PRN for SPASMS Prescribed by: MIREYA BAIRD on 09/07/21 1417 Fluconazole (Fluconazole) 100 Mg Tablet, (Reported) Entered as Reported by: ZECHARIAH JAY on 12/24/20 1631 Hydrocodone/Acetaminophen (Hydrocodone-Acetamin 5-325 mg) 1 Each Tablet, 1 EACH PO Q6H PRN for PAIN-BREAKTHROUGH Prescribed by: KHARI MATTHEWS on 08/20/19 0428 Ketorolac Tromethamine (Ketorolac Tromethamine) 10 Mg Tablet, 10 MG PO Q6H PRN for PAIN-SEE DOSE INSTRUCTIONS Prescribed by: MIREYA BAIRD on 12/24/20 1800 Nystatin (Nystatin) 100,000 Unit/1 Ml Oral.susp, 400,000 UNIT PO Q6H Prescribed by: MIREYA BAIRD on 12/24/20 1800 Review of Systems Review of Systems Constitutional: no symptoms reported EENTM: no symptoms reported Respiratory: no symptoms reported Cardiovascular: no symptoms reported Gastrointestinal: no symptoms reported Genitourinary: no symptoms reported Musculoskeletal: see HPI Skin: no symptoms reported Psychiatric/Neurological: No Symptoms Reported Hematologic/Lymphatic: No Symptoms Reported Immunological/Allergic: no symptoms reported Past Lxxcmoc-Ksncow-Stwxbx Hx Immunizations Up To Date Tetanus Booster (TDap): Less than 5yrs Second COVID19 Vaccination Boris: UNKNOWN Seasonal Allergies Seasonal Allergies: No Past Medical History Surgeries: Yes (RIGHT wrist, ) Orthopedic Respiratory: Yes Asthma Cardiac: No Neurological: Yes Seizure Disorder Genitourinary: No (ENLARGED KIDNEY) Gastrointestinal: No Musculoskeletal: No Endocrine: No HEENT: No Cancer: No Psychosocial: No Integumentary: No Blood Disorders: No Physical Exam Vital Signs Vital Signs - First Documented 09/07/21 09/07/21 13:27 14:24 Temp 36.4 Pulse 72 Resp 16 B/P (MAP) 112/76 (88) Pulse Ox 99 O2 Delivery Room Air Capillary Refill : Height, Weight, BMI Height: 5'11.00" Weight: 180lbs. 0.0oz. 81.199272bc; 25.00 BMI Method:Stated General Appearance: No Apparent Distress, WD/WN Eyes: Bilateral Eye Normal Inspection, Bilateral Eye PERRL, Bilateral Eye EOMI HEENT: PERRL/EOMI, Normal ENT Inspection Neck: Full Range of Motion, Normal Inspection, Supple Respiratory: Lungs Clear, Normal Breath Sounds, No Accessory Muscle Use, No Respiratory Distress, Other (right lateral rib tenderness ) Cardiovascular: Regular Rate, Rhythm, No Edema, No Murmur Gastrointestinal: Normal Bowel Sounds, Non Tender, Soft Back: Normal Inspection, No Vertebral Tenderness Extremity: Normal Capillary Refill, Normal Range of Motion Neurologic/Psychiatric: Alert, Oriented x3, No Motor/Sensory Deficits, Normal Mood/Affect Skin: Normal Color, Warm/Dry Procedures/Interventions Suture Size: 4-0, 5-0 Progress/Results/Core Measures Suspected Sepsis SIRS Temperature: Pulse: 72 Respiratory Rate: 16 Blood Pressure 112 /76 Mean: 88 Results/Orders My Orders Orders - MIREYA BAIRD DIRECT OF REAL ESTATE Ribs, Right 2-3 Views (09/07/21 13:37) Ketorolac Injection (Toradol Injection) (09/07/21 13:45) Orphenadrine Inj (Ed Only) (Norflex Inje (09/07/21 13:45) Medications Given in ED Current Medications Medications Dose Ordered Sig/Sha Route Start Time Stop Time Status Last Admin Dose Admin Ketorolac Tromethamine 30 mg ONCE ONCE IM 09/07/21 13:45 09/07/21 13:46 DC 09/07/21 14:09 30 MG Orphenadrine Citrate 60 mg ONCE ONCE IM 09/07/21 13:45 09/07/21 13:46 DC 09/07/21 14:09 60 MG Vital Signs/I&O 09/07/21 09/07/21 13:27 14:24 Temp 36.4 36.8 Pulse 72 69 Resp 16 18 B/P (MAP) 112/76 (88) 127/87 Pulse Ox 99 100 O2 Delivery Room Air Capillary Refill : Blood Pressure Mean: 88 Progress Note : Progress Note Given Toradol and Norflex for pain management. He has not been taking any medications npmf-cwz-sglnjak, will start conservative with some NSAIDs and rest. Encouraged him to follow-up with his primary care provider if his symptoms persist despite conservative treatment. He is agreeable with plan. Discharge plan of care reviewed, verbalized understanding. Diagnostic Imaging Diagonstic Imaging: Xray Comments [facility] [place], [place] NAME: JOSE [facility]ARTIN [facility] REC#: [id number] PT STATUS: DEP ER : 1990 PHYSICIAN: MIREYA BAIRD APRN ADMIT DATE: 09/07/21/ER Signed Date of Exam:09/07/21 RIBS, RIGHT 2-3 VIEWS INDICATION: Injury to right-sided ribs playing basketball. TIME OF EXAM: 1:58 p.m. FINDINGS: No displaced rib fracture is detected. No parenchymal contusion, effusion, or pneumothorax is seen. IMPRESSION: No acute abnormality is detected. Dictated by: Dictated on workstation # [id number] Dict: 09/07/21 1400 Trans: 09/07/21 [id number] Interpreted by: FREIDA STEARNS MD Electronically signed by: FREIDA STEARNS MD 09/07/21 1542 Departure Impression Primary Impression: Rib pain on right side Disposition: 01 HOME, SELF-CARE Condition: Stable Departure-Patient Inst. Decision time for Depature: 14:15 Referrals: JOSE FRANCISCO FISHMAN DO (PCP/Family) Primary Care Physician Patient Instructions: Bruised Rib (DC) Add. Discharge Instructions: Plan: 1. Take Ibuprofen 600mg by mouth every 6 hours for the next couple days. Take with food to prevent GI upset. 2. Take Flexeril 10mg by mouth every 8 hours as needed, may cause dizziness or drowsiness, do not drive or work while taking. 3. May use ice/heat 20 minutes at a time. 4. Follow up with your doctor for any persistent symptoms. 5. Return for any new, concerning, or worsening symptoms. All discharge instructions reviewed with patient and/or family. Voiced understanding. Scripts Cyclobenzaprine HCl (Cyclobenzaprine HCl) 10 Mg Tablet 10 MG PO Q8H PRN for SPASMS, #15 TAB 0 Refills Prov: MIREYA BAIRD DIRECT OF REAL ESTATE 09/07/21 MIREYA BAIRD DIRECT OF REAL ESTATE Sep 07, 2021 13:40
[2021-09-07] MEDS ORDERED: KETOROLAC 30 MG/ML VIAL IM ONE (13:45)
[2021-09-07] MEDS ORDERED: ORPHENADRINE 60 MG/2 ML (NORFLEX) AMP (ED ONLY) IM ONE (13:45)
--- NOTE | 2021-09-07 14:05 | Diagnostic Imaging Report ---
INDICATION: Injury to right-sided ribs playing basketball. TIME OF EXAM: 1:58 p.m. FINDINGS: No displaced rib fracture is detected. No parenchymal contusion, effusion, or pneumothorax is seen. IMPRESSION: No acute abnormality is detected. Dictated by: Dictated on workstation # [id number]
[2021-09-07] MEDS ORDERED: CYCL10TA25 PO (14:17)
[2021-09-07 14:24] VITALS: BP 127/87
== END 2021-09-07 14:20 | disposition home or self-care (01) ==
LOC: EDUNIT# 12:41 → ER 12:43
DX: R07.81 Pleurodynia (principal); W50.0XXA Accidental hit or strike by another person, initial encounter; Y93.67 Activity, basketball
CPT/HCPCS: 71100

== ENCOUNTER 2022-01-24 16:33 | Emergency (ER) | payer BC ==
[~2022-01-24] VITALS: Ht 182 cm; Wt 91.0 kg
[~2022-01-24 16:33] MED LIST changes: +CYCL10TA25 PO
[2022-01-24] MEDS ORDERED: DICYCLOMINE 10 MG (BENTYL) CAP PO STA (17:03)
--- NOTE | 2022-01-24 17:10 | ED Abdominal Pain ---
General Chief Complaint: Abdominal/GI Problems Stated Complaint: UPPER ABD PAIN,SWOLLEN HEAD-TEMPLES,HEADACHES Nursing Triage Note: PT STATES HAVING L UPPER ABD PAIN 5/10,HURTS MORE AFTER HE EATS. PT ALSO HAS BILATERAL SYNAGOGUE SWELLING AND PAIN Source of Information: Patient Exam Limitations: No Limitations History of Present Illness Date Seen by Provider: Jan 24, 2022 Time Seen by Provider: 16:57 Initial Comments Patient is a 31-year-old male who presents to the emergency department with a chief complaint of left upper quadrant abdominal pain. Patient states he has had pain pretty much consistently for the last 2 weeks. He states the pain is worse with eating. He states it is gotten to the point today that he is scared to eat or drink anything due to the pain. He has not taken anything for the pain. He is a little bit nauseous. He states at the onset of pain he noticed that he had an episode of bloody stools. No problems urinating. No problems with constipation. No prior abdominal surgeries. He is a smoker, he takes no daily medications. He drinks occasionally and had some alcohol last night. He has never had endoscopy or been diagnosed with ulcers in the past. Does not currently have blood in his stool or black tarry stool. All other review of systems reviewed and negative except as stated Timing/Duration: Other (2 weeks) Severity/Quality: Moderate, Aching Location: LUQ Radiation: No Radiation Activities at Onset: Other (eating) Modifying Factors: Worsens With Eating Associated Symptoms: Denies Symptoms Allergies and Home Medications Allergies Uncoded Allergies: ENVIROMENTAL (Allergy, Unknown, 01/24/22) Patient Home Medication List Home Medication List Reviewed: Yes Amoxicillin (Amoxicillin) 500 Mg Capsule, (Reported) Entered as Reported by: ZECHARIAH JAY on 12/24/20 1631 Cyclobenzaprine HCl (Cyclobenzaprine HCl) 10 Mg Tablet, 10 MG PO Q8H PRN for SPASMS Prescribed by: MIREYA BAIRD on 09/07/21 1417 Dicyclomine HCl (Dicyclomine HCl) 20 Mg Tablet, 20 MG PO QIDACHS Prescribed by: JOVANY BONNER on 01/24/22 1750 Fluconazole (Fluconazole) 100 Mg Tablet, (Reported) Entered as Reported by: ZECHARIAH JAY on 12/24/20 1631 Hydrocodone/Acetaminophen (Hydrocodone-Acetamin 5-325 mg) 1 Each Tablet, 1 EACH PO Q6H PRN for PAIN-BREAKTHROUGH Prescribed by: KHARI MATTHEWS on 08/20/19 0428 Ketorolac Tromethamine (Ketorolac Tromethamine) 10 Mg Tablet, 10 MG PO Q6H PRN for PAIN-SEE DOSE INSTRUCTIONS Prescribed by: MIREYA BAIRD on 12/24/20 1800 Nystatin (Nystatin) 100,000 Unit/1 Ml Oral.susp, 400,000 UNIT PO Q6H Prescribed by: MIREYA BAIRD on 12/24/20 1800 Review of Systems Review of Systems Constitutional: see HPI EENTM: No Symptoms Reported Respiratory: No Symptoms Reported Cardiovascular: No Symptoms Reported Gastrointestinal: Abdominal Pain, Blood Streaked Stools (2 weeks ago) Genitourinary: No Symptoms Reported Musculoskeletal: no symptoms reported Skin: no symptoms reported Psychiatric/Neurological: No Symptoms Reported All Other Systems Reviewed Negative Unless Noted: Yes Past Trattpc-Bgzuux-Bkzrxf Hx Patient Social History Tobacco Use?: Yes Tobacco type used: Cigarettes Substance use?: Yes Substance type: Marijuana Substance frequency: Once in a while Alcohol Use?: Yes Alcohol type: Hard Liquor Alcohol Frequency: Once in a while Pt feels they are or have been: No Immunizations Up To Date Tetanus Booster (TDap): Less than 5yrs Influenza Vaccine Up-to-Date: No; Not Current First/Initial COVID19 Vaccinat: YES Second COVID19 Vaccination Boris: YES COVID19 Vaccine Medical Collections: EchoSign[employer] Seasonal Allergies Seasonal Allergies: No Past Medical History Surgery/Hospitalization HX: EPILEPSY HX, ALLERGIES, ENLARGED L KIDNEY, R HAND SURG Surgeries: Yes (RIGHT wrist, ) Orthopedic Respiratory: Yes Asthma Cardiac: No Neurological: Yes Seizure Disorder Genitourinary: No (ENLARGED KIDNEY) Gastrointestinal: No Musculoskeletal: No Endocrine: No HEENT: No Cancer: No Psychosocial: No Integumentary: No Blood Disorders: No Physical Exam Vital Signs Vital Signs - First Documented 01/24/22 16:35 Temp 37.0 Pulse 95 Resp 16 B/P (MAP) 136/94 (108) Pulse Ox 97 Capillary Refill : Less Than 3 Seconds Height/Weight/BMI Height: 5'11.00" Weight: 180lbs. 0.0oz. 81.627097zc; 27.00 BMI Method:Stated General Appearance: WD/WN, no apparent distress HEENT: PERRL/EOMI Neck: normal inspection Respiratory: lungs clear, normal breath sounds, no respiratory distress, no accessory muscle use Cardiovascular: regular rate, rhythm Peripheral Pulses: 2+ Radial Pulses (R), 2+ Radial Pulses (L) Gastrointestinal: soft, tenderness (LUQ, minimal in the epigastrum) Extremities: non-tender, normal inspection, normal capillary refill Neurologic/Psychiatric: no motor/sensory deficits, alert, normal mood/affect, oriented x 3 Skin: normal color, warm/dry Procedures/Interventions Suture Size: 4-0, 5-0 Progress/Results/Core Measures Results/Orders Lab Results Laboratory Tests Test 01/24/22 17:20 Range/Units White Blood Count 9.0 4.3-11.0 10^3/uL Red Blood Count 5.00 4.30-5.52 10^6/uL Hemoglobin 15.6 13.3-17.7 g/dL Hematocrit 46 40-54 % Mean Corpuscular Volume 92 80-99 fL Mean Corpuscular Hemoglobin 31 25-34 pg Mean Corpuscular Hemoglobin Concent 34 32-36 g/dL Red Cell Distribution Width 13.3 10.0-14.5 % Platelet Count 227 130-400 10^3/uL Mean Platelet Volume 9.8 9.0-12.2 fL Immature Granulocyte % (Auto) 1 % Neutrophils (%) (Auto) 66 42-75 % Lymphocytes (%) (Auto) 19 12-44 % Monocytes (%) (Auto) 13 H 0-12 % Eosinophils (%) (Auto) 1 0-10 % Basophils (%) (Auto) 0 0-10 % Neutrophils # (Auto) 5.9 1.8-7.8 10^3/uL Lymphocytes # (Auto) 1.7 1.0-4.0 10^3/uL Monocytes # (Auto) 1.2 H 0.0-1.0 10^3/uL Eosinophils # (Auto) 0.1 0.0-0.3 10^3/uL Basophils # (Auto) 0.0 0.0-0.1 10^3/uL Immature Granulocyte # (Auto) 0.1 0.0-0.1 10^3/uL Sodium Level 136 135-145 MMOL/L Potassium Level 4.3 3.6-5.0 MMOL/L Chloride Level 104 98-107 MMOL/L Carbon Dioxide Level 20 L 21-32 MMOL/L Anion Gap 12 5-14 MMOL/L Blood Urea Nitrogen 22 H 7-18 MG/DL Creatinine 1.51 H 0.60-1.30 MG/DL Estimat Glomerular Filtration Rate 62 BUN/Creatinine Ratio 15 Glucose Level 79 70-105 MG/DL Calcium Level 9.2 8.5-10.1 MG/DL Corrected Calcium 9.0 8.5-10.1 MG/DL Total Bilirubin 0.4 0.1-1.0 MG/DL Aspartate Amino Transf (AST/SGOT) 57 H 5-34 U/L Alanine Aminotransferase (ALT/SGPT) 46 0-55 U/L Alkaline Phosphatase 78 40-136 U/L Total Protein 8.0 6.4-8.2 GM/DL Albumin 4.2 3.2-4.5 GM/DL My Orders Orders - JOVANY BONNER MD Ed Iv/Invasive Line Start (01/24/22 17:03) Cbc With Automated Diff (01/24/22 17:03) Comprehensive Metabolic Panel (01/24/22 17:03) Dicyclomine Capsule (Bentyl Capsule) (01/24/22 17:03) Ns Iv 1000 Ml (Sodium Chloride 0.9%) (01/24/22 17:15) Pantoprazole Injection (Protonix Injecti (01/24/22 17:15) Medications Given in ED Vital Signs/I&O 01/24/22 01/24/22 16:35 18:13 Temp 37.0 Pulse 95 94 Resp 16 18 B/P (MAP) 136/94 (108) 140/94 Pulse Ox 97 97 Blood Pressure Mean: 108 Counseling-Symptomatic: 3-10 Minutes Follow-up with PCP to: Discuss Further Options Departure Impression Primary Impression: Gastritis Qualified Codes: K29.00 - Acute gastritis without bleeding Disposition: HOME, SELF-CARE Condition: Stable Departure-Patient Inst. Decision time for Depature: 18:04 Referrals: JOSE FRANCISCO FISHMAN DO (PCP/Family) Primary Care Physician Patient Instructions: Gastritis ED Add. Discharge Instructions: We are going to treat you for gastritis today. You may have an ulcer. You need to be on an zlfk-agh-axjfpur acid medical and health services manager such as generic Prilosec or Pepcid. Please follow packaging instructions. I would recommend that you follow-up with the surgeon on-call to look into having an upper endoscopy done to look for ulcers. I have prescribed you some dicyclomine/Bentyl. Take 130 minutes before meals and at bedtime until you follow-up with your primary care doctor or Dr. Cerda the surgeon. Return to the emergency department for any worsening pain, vomiting, vomiting blood or more blood in your stool. You should stop smoking as this can greatly reduce ulcers and upset stomach, heartburn and reduce your risk of cancer. Scripts Dicyclomine HCl (Dicyclomine HCl) 20 Mg Tablet 20 MG PO QIDACHS, #60 TAB Prov: JOVANY BONNER MD 01/24/22 Copy Copies To 1: JOSE FRANCISCO FISHMAN DO Copies To 2: EMANUEL CERDA DO JOVANY BONNER MD Jan 24, 2022 17:10
[2022-01-24] MEDS ORDERED: NS IV 1000 ML 1,000 ML IV SCH (17:15)
[2022-01-24] MEDS ORDERED: PANTOPRAZOLE 40 MG (PROTONIX) VIAL IV ONE (17:15)
[2022-01-24 17:43] LABS: BASOPHILS % (AUTO) 0 % (0-10); EOSINOPHILS # (AUTO) 0.1 10^3/uL (0.0-0.3); EOSINOPHILS % (AUTO) 1 % (0-10); HEMATOCRIT 46 % (40-54); HEMOGLOBIN 15.6 g/dL (13.3-17.7); LYMPHOCYTES # (AUTO) 1.7 10^3/uL (1.0-4.0); LYMPHOCYTES % (AUTO) 19 % (12-44); MEAN CORPUSCULAR HEMOGLOBIN 31 pg (25-34); MEAN CORPUSCULAR HGB CONC 34 g/dL (32-36); MEAN CORPUSCULAR VOLUME 92 fL (80-99); MEAN PLATELET VOLUME 9.8 fL (9.0-12.2); MONOCYTES # (AUTO) 1.2 10^3/uL (0.0-1.0); MONOCYTES % (AUTO) 13 % (0-12); NEUTROPHILS # (AUTO) 5.9 10^3/uL (1.8-7.8); NEUTROPHILS % (AUTO) 66 % (42-75); PLATELET COUNT 227 10^3/uL (130-400)
[2022-01-24 17:46] LABS: ALBUMIN 4.2 GM/DL (3.2-4.5)
[2022-01-24 17:47] LABS: POTASSIUM 4.3 MMOL/L (3.6-5.0)
[2022-01-24 17:48] LABS: CALCIUM 9.2 MG/DL (8.5-10.1)
[2022-01-24] MEDS ORDERED: DICY20TA PO (17:50)
[2022-01-24 17:51] LABS: BILIRUBIN,TOTAL 0.4 MG/DL (0.1-1.0)
[2022-01-24 17:53] LABS: CREATININE SERUM 1.51 MG/DL (0.60-1.30)
[2022-01-24 18:13] VITALS: BP 140/94
== END 2022-01-24 18:13 | disposition home or self-care (01) ==
LOC: EDUNIT# 16:33 → ER 16:35
DX: K29.70 Gastritis, unspecified, without bleeding (principal); F17.210 Nicotine dependence, cigarettes, uncomplicated
CPT/HCPCS: 36415; 80053; 85025

== ENCOUNTER → 2022-01-30 | Outpatient (CLI) | payer BC ==
[~2022-01-30] MED LIST changes: +DICY20TA PO
[2022-01-30 13:06] LABS: AMYLASE 145 U/L (25-125); LIPASE 50 U/L (8-78)
== END ==
LOC: LAB 12:09
PROVIDERS: ATTEND Family Medicine
DX: R10.9 Unspecified abdominal pain (principal)
CPT/HCPCS: 36415; 82150; 83690

== ENCOUNTER → 2022-02-12 | Outpatient (CLI) | payer BC ==
[~2022-02-12] MED LIST changes: +CATHETER FLUSH 10 ML SYR IV PRN; +HOLD METFORMIN - RECEIVED CONTRAST 20 ML VIAL IV SCH; +IOHEXOL 350 MG/ML 100 ML (OMNIPAQUE 350) VIAL IV ONE; +NS 100 ML (IVPB) BAG IV ONE
--- NOTE | 2022-02-12 11:49 | Diagnostic Imaging Report ---
PROCEDURE: CT abdomen and pelvis with contrast. TECHNIQUE: Multiple contiguous axial images were obtained through the abdomen and pelvis after administration of intravenous contrast. Auto Exposure Controls were utilized during the CT exam to meet ALARA standards for radiation dose reduction. All CT scans use one or more of the following dose optimizing techniques: automated exposure control, MA and/or KvP adjustment based on patient size and exam type or iterative reconstruction. INDICATION: Epigastric pain, worse after eating. COMPARISON: No prior studies are available for comparison. FINDINGS: The lung bases are clear. The liver and gallbladder are unremarkable. There is no biliary ductal dilatation. The pancreas and spleen are unremarkable. No adrenal mass is detected. The right kidney is unremarkable. There appears to be a tiny approximately 2 mm nonobstructing calculus in the mid left kidney. No ureteral calculus or hydronephrosis is identified. The aorta is nonaneurysmal. The small and large bowel loops are of normal caliber. There is no obstruction. No inflammatory changes are seen. There is no free fluid or fluid collection identified. The bladder and prostate are unremarkable. IMPRESSION: Tiny nonobstructing left renal calculus. The study is otherwise unremarkable. No acute feature is detected. Dictated by: Dictated on workstation # [id number]
== END ==
LOC: RAD 10:34
PROVIDERS: ATTEND Family Medicine
DX: N20.0 Calculus of kidney (principal)
CPT/HCPCS: 74177

== ENCOUNTER 2022-03-15 09:37 | Outpatient (CLI) | payer BC ==
[~2022-03-15] VITALS: Ht 182.9 cm; Wt 98.9 kg
[~2022-03-15 09:37] MED LIST changes: -CATHETER FLUSH 10 ML SYR IV PRN; -HOLD METFORMIN - RECEIVED CONTRAST 20 ML VIAL IV SCH; -IOHEXOL 350 MG/ML 100 ML (OMNIPAQUE 350) VIAL IV ONE; -NS 100 ML (IVPB) BAG IV ONE
[2022-03-15] MEDS ORDERED: PANT40TA52 PO (10:21)
== END 2022-03-15 10:27 | disposition home or self-care (01) ==
LOC: PREOP 09:37
PROVIDERS: ATTEND Surgery
DX: Z01.818 Encounter for other preprocedural examination (principal)

== ENCOUNTER → 2022-03-27 | Outpatient (CLI) | payer BC ==
[~2022-03-27] MED LIST changes: +PANT40TA52 PO
== END ==
LOC: LAB 17:17
PROVIDERS: ATTEND Surgery
DX: K21.9 Gastro-esophageal reflux disease without esophagitis (principal); R10.9 Unspecified abdominal pain
CPT/HCPCS: 36415; 86677

== ENCOUNTER 2022-04-18 13:11 | Day surgery (SDC) | payer BC ==
--- NOTE | 2022-04-16 11:46 | HISTORY AND PHYSICAL ---
DATE OF SERVICE: 04/18/2022 ATTENDING PRIMARY CARE PHYSICIAN: Dr. Friedman. INDICATION: The patient is a 32-year-old male who was referred over to us for persistent left upper quadrant as well as epigastric pain for the past 4-5 months. He reports that he did have a severe episode where he did present to the emergency room and was also seen by his primary care physician and was started on medication with minimal relief. He does report that the epigastric pain mostly occurs when eating. He reports that he feels like he can feel a lump when he bends over to tie his shoes in his throat. He does report at times chest discomfort. He reports that he does drink half a pint a day of hard liquor, but did recently stop. He denies any nausea, vomiting or diarrhea as well as no constipation. He denies any weight loss as well as no hematemesis or any coffee-ground emesis. He does report to smoking cigars daily as well as THC daily. MEDICAL HISTORY: Gastroesophageal reflux disease. SURGICAL HISTORY: ORIF right hand, 2004. ALLERGIES: NO KNOWN DRUG ALLERGIES. MEDICATIONS: Protonix, [ ]. SOCIAL HISTORY: Positive for cigar and THC daily, previous for alcohol use, half pint daily and quit four months ago. FAMILY HISTORY: Noncontributory. VITAL SIGNS: Blood pressure is 110/60. Current weight is 218 pounds at 6 feet 0 inches. REVIEW OF SYSTEMS: Well-nourished male in no acute distress. He is not experiencing any shortness of breath or difficulty breathing. No chest pain, palpitations or diaphoresis. No nausea or vomiting. He does report epigastric as well as left upper quadrant abdominal pain. No hematemesis or any coffee-ground emesis. No diarrhea or constipation. No red blood per rectum. No dark tarry stools. No fever or chills. No recent inadvertent weight loss. All other review of systems negative. PHYSICAL EXAM: CHEST: Clear. Good breath sounds bilaterally. HEART: Regular, no murmurs. EXTREMITIES: No lower extremity edema. Negative Homans sign. HEENT: No scleral icterus. No cervical lymphadenopathy. ABDOMEN: Soft, nondistended. There is some mild tenderness in the epigastric region. SKIN: Warm, dry and pink. NEUROLOGIC: Awake, alert and oriented x3. ASSESSMENT AND PLAN: A 32-year-old male with left upper quadrant as well as epigastric pain and reflux. At this time, he has had an H. pylori test, which was negative. He has been on PPI acid reducers without any improvement of symptoms. At this time, we will recommend proceeding with an EGD with biopsies as appropriate. The patient verbalized understanding of instructions and agrees for this plan. At this time, we will schedule him for EGD with biopsies as appropriate. Job ID: [id number] DocumentID: [id number] Dictated Date: 04/16/2022 09:17:39 Nuclear Operations Specialist Date: 04/16/2022 11:44:00 Dictated By: PAO MON APRN
[~2022-04-18] VITALS: Ht 182.9 cm; Wt 98.9 kg
[2022-04-18] MEDS ORDERED: LACTATED RINGERS 1,000 ML IV STA (13:13)
[2022-04-18] MEDS ORDERED: HURRICAINE EXT TUBE (BENZOCAINE) XX PRN (13:15)
[2022-04-18] MEDS ORDERED: LIDOCAINE JELLY 2% 6 ML SYRINGE MM PRN (13:15)
[2022-04-18] MEDS ORDERED: LIDOCAINE JELLY 2% 6 ML SYRINGE ONE (13:18)
--- NOTE | 2022-04-18 13:20 | Progress Note-Pre Operative ---
Pre-Operative Progress Note Date of Available H&P: Apr 18, 2022 Date H&P Reviewed: Apr 18, 2022 Time H&P Reviewed: 13:00 History & Physical: No changes noted Pre-Operative Diagnosis: anemia, heme + JENNY GONZALEZ MD Apr 18, 2022 13:20
--- NOTE | 2022-04-18 13:21 | Discharge Inst-Surgical ---
D/C Lap Instructions-CARLOS Follow Up Activity as tolerated High Fiber Diet 25g or more per day Avoid Alcohol, Caffeine, Spicy [place] and Acid foods. Drink 64 fluid oz or more of fluids per day. Symptoms to Report: Fever over 101 degree F, Nausea/Vomiting If any problems/questions: Contact your physician or go to Emergency Room JENNY GONZALEZ MD Apr 18, 2022 13:21
--- NOTE | 2022-04-18 13:22 | Progress Note-Pre Operative ---
Pre-Operative Progress Note Date of Available H&P: Apr 18, 2022 Date H&P Reviewed: Apr 18, 2022 Time H&P Reviewed: 13:00 History & Physical: No changes noted Pre-Operative Diagnosis: GERD, dysphagia JENNY GONZALEZ MD Apr 18, 2022 13:22
[2022-04-18] MEDS ORDERED: ONDANSETRON 4 MG (ZOFRAN) ORAL DISSOLVE TAB PO PRN (13:30)
[2022-04-18] MEDS ORDERED: ONDANSETRON 4 MG/2 ML (SDV) Z0FRAN IVP PRN (13:30)
[2022-04-18 13:50] VITALS: BP 121/84
[2022-04-18] MEDS ORDERED: proPOfol 200 MG/20 ML (DIPRIVAN) VIAL IV ONE ×2 (14:08→14:40)
[2022-04-18] MEDS ORDERED: MIDAZOLAM 2 MG/2 ML (VERSED) VIAL ONE (14:09)
--- NOTE | 2022-04-18 14:43 | Anesthesia-General Post-Op ---
MAC Patient Condition Mental Status/LOC: Same as Preop Cardiovascular: Satisfactory Nausea/Vomiting: Absent Respiratory: Satisfactory Pain: Controlled Complications: Absent Post Op Complications Complications None Follow Up Care/Instructions Patient Instructions None needed. Anesthesiology Discharge Order Discharge Order Patient is doing well, no complaints, stable vital signs, no apparent adverse anesthesia problems. No complications reported per nursing. THA GOODSON CRNA Apr 18, 2022 14:43
[2022-04-18 14:45] VITALS: BP 104/60
[2022-04-18 14:50] VITALS: BP 101/59
[2022-04-18] MEDS ORDERED: OMEP40CA6 PO (15:09)
[2022-04-18] MEDS ORDERED: SUCR1TAB36 PO (15:09)
[2022-04-18 15:15] VITALS: BP 110/80
[2022-04-18 15:28] VITALS: BP 110/80
--- NOTE | 2022-04-18 16:17 | Progress Note-Post Operative ---
Post-Operative Progess Note Surgeon (s)/Safety Tech (s) Surgeon JENNY GONZALEZ MD Safety Tech: none Pre-Operative Diagnosis GERD, dysphagia Post-Operative Diagnosis reflux esophagitis(grade D), esoph ulcer, dist esoph stricture, small HH(2cm), moderate gastritis. Procedure & Operative Findings Date of Procedure 04/18/22 Procedure Performed/Findings EGD with bx and balloon dilatation Anesthesia Type mac Estimated Blood Loss Estimated blood loss (mL): minimal Specimens/Packing Specimens Removed ge jxn ulcer, antrum JENNY GONZALEZ MD Apr 18, 2022 16:17
--- NOTE | 2022-04-18 22:35 | OPERATIVE REPORT ---
DATE OF SERVICE: 04/18/2022 ATTENDING PRIMARY CARE PHYSICIAN: Ray Friedman DO PREOPERATIVE DIAGNOSES: Gastroesophageal reflux disease and dysphagia. POSTOPERATIVE DIAGNOSES: Reflux esophagitis, [place] grade D with an esophageal ulcer and mild distal esophageal stricture, small hiatal hernia, 2 cm in size, moderate gastritis. No distal obstructions. PROCEDURE: EGD with biopsy and balloon dilatation. SURGEON: Jenny Gonzalez MD ANESTHESIA: Monitored anesthesia care. ESTIMATED BLOOD LOSS: Minimal. FINDINGS: Reflux esophagitis, [place] grade D with an esophageal ulcer and mild distal esophageal stricture, small hiatal hernia, 2 cm in size, moderate gastritis. No distal obstructions. DISPOSITION: The patient tolerated the procedure well. INDICATIONS: The patient is a 32-year-old male referred over to us for epigastric pain for the past 6 months as well as episodes of substernal chest pressure and dysphagia. He reports that this was eventually reduced on its own. He does not report any issues with hematemesis, no coffee-ground emesis. He also does not report any red blood per rectum, nor any dark tarry stools. He does have significant risk factors for peptic ulcer disease as well as reflux esophagitis including drinking half pint of liquor daily as well as cigar smoking and THC use as well. DESCRIPTION OF PROCEDURE: The patient was brought to the endoscopy suite and laid in the left lateral decubitus position. After adequate IV pain and sedative medications and monitored anesthesia care, the mouthpiece was applied. The endoscope was placed in the mouth, visualized the pharynx and hypopharyngeal region. Vocal cords, epiglottis and vallecula identified and appeared to be normal. The endoscope was then gently intubated in the esophageal opening and esophagus insufflated. The endoscope was then advanced into the first, second and third portion of the esophagus to the level of the GE junction, a reflux esophagitis, [place] grade D identified with the esophageal ulceration as well as a mild distal esophageal stricture. A biopsy was taken of the ulcer with forceps with visualization of good hemostasis. The endoscope was then advanced into the stomach and the endoscope retroflexed visualizing small hiatal hernia approximately 2.5 cm in size. There was moderate severity gastritis. No formal ulcerations, polyps or any neoplasms. A biopsy was taken of the antrum to rule out H. pylori with visualization of good hemostasis. The endoscope was then advanced through the pylorus and first and second portion of the duodenum, which appeared normal with no distal obstructions. The endoscope was then slowly withdrawn while taking a second look and suctioning of residual air with no additional findings. The balloon was then placed into the stomach under direct visualization and pulled back to the area of the stricture. We then proceeded with dilatation in a graded stepwise fashion from 2, 4, then eventually 5 atmospheres of pressure with moderate resistance or 19 mm in luminal diameter and left this in place for approximately 60 seconds. The balloon was then desufflated and removed with visualization of good hemostasis as well as no mucosal tears. The endoscope was then slowly withdrawn while taking a second look and suctioning of residual air with no additional findings. The patient tolerated the procedure well. We will recommend the necessary lifestyle and dietary accommodation including cessation of alcohol, smoking as well as a small and more frequent meals, avoidance of eating at night as well as head elevation while lying supine. He also needs to avoid caffeinated beverages, spicy, greasy and acidic foods. He states that he is currently on Protonix; however, due to his persistent symptomatology, we will also start him on omeprazole 40 mg daily to be taken at a different time during the day as well as Carafate 1 gram q.i.d. for 2 weeks, then on a p.r.n. basis. We were able to dilate to 19 mm in luminal diameter and if he does have recurrent dysphagia, we will have him follow up for a repeat dilatation. Job ID: [id number] DocumentID: [id number] Dictated Date: 04/18/2022 14:53:26 Etymology Professor Date: 04/18/2022 22:32:00 Dictated By: JENNY GONZALEZ MD
== END 2022-04-18 15:28 | disposition home or self-care (01) ==
LOC: ENDO 13:11
PROVIDERS: ATTEND Surgery
DX: K21.00 Gastro-esophageal reflux disease with esophagitis, without bleeding (principal); K22.10 Ulcer of esophagus without bleeding; K44.9 Diaphragmatic hernia without obstruction or gangrene; K22.2 Esophageal obstruction; K29.70 Gastritis, unspecified, without bleeding; F17.290 Nicotine dependence, other tobacco product, uncomplicated; Z79.899 Other long term (current) drug therapy; K31.89 Other diseases of stomach and duodenum

== ENCOUNTER 2022-08-25 15:22 | Emergency (ER) | payer BC ==
[~2022-08-25] VITALS: Ht 182 cm; Wt 93.0 kg
[~2022-08-25 15:22] MED LIST changes: +OMEP40CA6 PO; +SUCR1TAB36 PO
[2022-08-25 15:28] VITALS: BP 107/77
--- NOTE | 2022-08-25 15:43 | Diagnostic Imaging Report ---
INDICATION: Rolling ankle with pain. FINDINGS: Three view left ankle shows soft tissue swelling laterally; however, the distal fibula, medial and posterior malleoli are all intact. No widening of the ankle mortise. No articular irregularity. The base of the 5th metatarsal appears intact. IMPRESSION: Swelling laterally but no fracture or disruption of the mortise apparent. Dictated by: Dictated on workstation # [id number]
--- NOTE | 2022-08-25 15:47 | ED Lower Extremity ---
General Chief Complaint: Lower Extremity Stated Complaint: LEFT ANKLE INJ Nursing Triage Note: PT TO ED W/ C/O LT ANKLE PAIN AFTER INJURING ANKLE DURING "AGGRESSIVE GAME OF BASKETBALL". SWELLING NOTED TO LT LATERAL ANKLE. NO OTHER C/O VOICED. Source: patient Exam Limitations: no limitations History of Present Illness Date Seen by Provider: Aug 25, 2022 Time Seen by Provider: 15:38 Initial Comments 32-year-old male presents for left ankle injury playing basketball yesterday and rolled it. Has been able to walk but with significant pain. He has pain to the medial and lateral malleoli. All other systems reviewed and negative except documented per HPI. Voice recognition software was used to help create this chart Allergies and Home Medications Allergies Uncoded Allergies: ENVIROMENTAL (Allergy, Unknown, 01/24/22) Patient Home Medication List Home Medication List Reviewed: Yes Omeprazole (Omeprazole) 40 Mg Capsule.dr, 40 MG PO DAILY Prescribed by: EFRAIN BELL on 04/18/22 1509 Pantoprazole Sodium (Pantoprazole Sodium) 40 Mg Tablet.dr, 40 MG PO DAILY, (Reported) Entered as Reported by: JULIETH STEVENS on 03/15/22 1021 Sucralfate (Carafate) 1 Gram Tablet, 1 GM PO QID Prescribed by: EFRAIN BELL on 04/18/22 1509 Review of Systems Constitutional: see HPI Past Rieilyg-Glxhoc-Wpzrcp Hx Patient Social History Tobacco Use?: Yes Tobacco type used: Cigars Use of E-Cig and/or Vaping dev: No Substance use?: Yes Substance type: Marijuana Substance frequency: Daily Alcohol Use?: No Pt feels they are or have been: No Immunizations Up To Date Tetanus Booster (TDap): Less than 5yrs First/Initial COVID19 Vaccinat: YES Second COVID19 Vaccination Boris: YES Third COVID19 Vaccination Date: YES Seasonal Allergies Seasonal Allergies: No Past Medical History Surgery/Hospitalization HX: EPILEPSY HX, ALLERGIES, ENLARGED L KIDNEY, R HAND SURG Surgeries: Yes (RIGHT wrist, ) Orthopedic Respiratory: Yes Asthma Cardiac: No Neurological: Yes Seizure Disorder Genitourinary: No (ENLARGED KIDNEY) Gastrointestinal: Yes (epigastric pain) Musculoskeletal: No Endocrine: No HEENT: No Cancer: No Psychosocial: No Integumentary: No Blood Disorders: No Physical Exam Vital Signs Vital Signs - First Documented 08/25/22 15:28 Temp 36.9 Pulse 87 Resp 20 B/P (MAP) 107/77 (87) Pulse Ox 98 O2 Delivery Room Air Capillary Refill : Less Than 3 Seconds Height, Weight, BMI Height: 5'11.00" Weight: 180lbs. 0.0oz. [id number]; 28.00 BMI Method:Stated General Appearance: WD/WN, no apparent distress Hips: bilateral hip non-tender, bilateral hip normal inspection, bilateral hip normal range of motion Legs: bilateral leg non-tender, bilateral leg normal inspection, bilateral leg normal range of motion Knees: bilateral knee non-tender, bilateral knee normal inspection, bilateral knee normal range of motion Ankles: left ankle other (Tenderness bilateral malleolar I. There is swelling of the lateral malleolus. Neurovascular motor and sensory intact) Procedures/Interventions Suture Size: 4-0, 5-0 Progress/Results/Core Measures Results/Orders My Orders Orders - ESSENCE LALA DO Ankle, Left, 3 Views (08/25/22 15:33) Vital Signs/I&O 08/25/22 15:28 Temp 36.9 Pulse 87 Resp 20 B/P (MAP) 107/77 (87) Pulse Ox 98 O2 Delivery Room Air Blood Pressure Mean: 87 Departure Impression Primary Impression: Fracture of medial malleolus Qualified Codes: S82.55XA - Nondisplaced fracture of medial malleolus of left tibia, initial encounter for closed fracture Disposition: 01 HOME, SELF-CARE Condition: Stable Departure-Patient Inst. Referrals: JOSE FRANCISCO FISHMAN DO (PCP/Family) Primary Care Physician HOMA SHARPE MD Add. Discharge Instructions: Use the Aircast as needed. Bear weight as tolerated. Follow-up with orthopedic surgeon by calling to schedule an appointment. Use ibuprofen and Tylenol for pain. All discharge instructions reviewed with patient and/or family. Voiced understanding. ESSENCE LALA DO Aug 25, 2022 15:47
== END 2022-08-25 15:53 | disposition home or self-care (01) ==
LOC: EDUNIT# 15:22 → ER 15:24
DX: S82.52XA Displaced fracture of medial malleolus of left tibia, initial encounter for closed fracture (principal); F17.210 Nicotine dependence, cigarettes, uncomplicated; X50.1XXA Overexertion from prolonged static or awkward postures, initial encounter; Y92.310 Basketball court as the place of occurrence of the external cause; Y93.67 Activity, basketball
CPT/HCPCS: 73610